=== PATIENT | female | born 1945 | race Caucasian/White ===

== ENCOUNTER 2023-03-31 15:23 | Inpatient (IN) ==
[2023-03-31 17:42] LABS: ABS Basophils 0.1 10^3/uL (0.0-0.1); ABS Eosinophils 0.1 10^3/uL (0.0-0.5); ABS Lymphocytes 0.8 10^3/uL (1.0-4.8); ABS Monocytes 0.8 10^3/uL (0.0-0.9); ABS Neutrophils 9.1 10^3/uL (1.5-7.6); ABS Nucleated RBC 0.01 10^3/ul; Eosinophil % 1.1 %; Hematocrit 30.4 % (35-45); Hemoglobin 9.8 g/dL (11.5-14.3); Lymphocyte % 7.6 %; Mean Corpuscular Hemoglobin 27.1 pg (27-33); Mean Corpuscular Hgb Conc 32.3 g/dL (31-36); Mean Corpuscular Volume 83.8 fL (80-97); Mean Platelet Volume 7.4 fL (7.5-11.2); Platelet Count 315 10^3/uL (150-450); Red Blood Count 3.63 10^6/uL (3.63-4.92); Red Cell Distribution Width 17.7 % (12-17); White Blood Count 10.8 10^3/uL (3.8-11.8)
[2023-03-31 18:05] LABS: High Sens Troponin Baseline 11 pg/mL (<15)
[2023-03-31 18:16] LABS: ALT 16 U/L (7-52); AST 25 U/L (13-39); Albumin 3.2 g/dL (3.2-5.2); Albumin/Globulin Ratio 1.1 (1-3); Alkaline Phosphatase 67 U/L (35-149); Anion Gap 8 mmol/L (2-16); Blood Urea Nitrogen 17 mg/dL (6-24); C Reactive Protein 219.61 mg/L (<8.01); CO2 Carbon Dioxide 29 mmol/L (22-32); Calcium 9.4 mg/dL (8.6-10.3); Chloride 98 mmol/L (101-111); Creatinine, Serum 0.45 mg/dL (0.51-0.95); Globulin 2.8 g/dL (2-4); Glucose 193 mg/dL (70-100); Magnesium 1.9 mg/dL (1.9-2.7); Phosphorus 2.1 mg/dL (2.5-5.0); Potassium 4.7 mmol/L (3.5-5.0); Sodium 135 mmol/L (135-145); eGFR CKD-EPI 100.3 (>60)
[2023-03-31] MEDS ORDERED: NS 0.9% 1000 ml BAG 1,000 ML IV ONE (18:41)
[2023-03-31 19:08] LABS: Urine Appearance Cloudy; Urine Bacteria 1+ (Absent); Urine Bilirubin Negative (Negative); Urine Blood 3+ (Negative); Urine Color Yellow; Urine Glucose 3+(>=500 mg/dL) (Negative); Urine Ketones 1+ (Negative); Urine Nitrite Positive (Negative); Urine Protein 2+(100 mg/dL) (Negative); Urine Red Blood Cell 3+(>10/hpf) (Absent); Urine Urobilinogen Negative (Negative); Urine White Blood Cell 3+(>20/hpf) (Absent); Urine Yeast Present (Absent)
[2023-03-31] MEDS ORDERED: cefTRIAXone 1 gm/50 mL D5W 1 GM/50 ML BAG IV ONE (19:09)
[2023-03-31 19:28] LABS: High Sensitivity Troponin 1 Hr 11 pg/mL (<15)
[2023-03-31] MEDS ORDERED: Enoxaparin 40 MG/0.4 ML SYR SUBCUT SCH (21:00)
[2023-03-31] MEDS ORDERED: ALBUTEROL SULFATE 0.63 MG/3 ML INH SCH (21:45)
[2023-03-31] MEDS ORDERED: Senna TAB 8.6 mg TAB PO PRN (21:45)
[2023-03-31] MEDS ORDERED: Morphine ER 15 mg TAB ** extended release PO SCH (22:00)
[2023-03-31] MEDS ORDERED: Albuterol 2.5mg/3 ml (0.083%) NEB.SOLN INH PRN (22:50)
[2023-03-31] MEDS ORDERED: Dextrose 50% Syringe 50 ml 25 GM/50 ML SYRINGE IV PUSH PRN (23:02)
[2023-03-31 23:59] LABS: TSH Ultra Thyroid Stim Horm 35.51 mcIU/mL (0.34-5.60)
[2023-04-01 00:10] LABS: Vitamin B12 > 1450 pg/mL (180-914)
[2023-04-01 02:10] LABS: ABS Eosinophils 0.1 10^3/uL (0.0-0.5); ABS Lymphocytes 1.1 10^3/uL (1.0-4.8); ABS Monocytes 0.6 10^3/uL (0.0-0.9); ABS Neutrophils 6.3 10^3/uL (1.5-7.6); ABS Nucleated RBC 0.01 10^3/ul; Eosinophil % 1.5 %; Hematocrit 27.6 % (35-45); Hemoglobin 8.9 g/dL (11.5-14.3); Lymphocyte % 13.8 %; Mean Corpuscular Hemoglobin 27.4 pg (27-33); Mean Corpuscular Hgb Conc 32.4 g/dL (31-36); Mean Corpuscular Volume 84.6 fL (80-97); Mean Platelet Volume 7.2 fL (7.5-11.2); Nucleated Red Blood Cells % 0.1 /100 WBC (0.0-0.4); Platelet Count 279 10^3/uL (150-450); Red Blood Count 3.26 10^6/uL (3.63-4.92); Red Cell Distribution Width 17.5 % (12-17); White Blood Count 8.1 10^3/uL (3.8-11.8)
[2023-04-01 02:29] LABS: Calcium 8.7 mg/dL (8.6-10.3); Creatinine, Serum 0.36 mg/dL (0.51-0.95); Potassium 4.3 mmol/L (3.5-5.0); eGFR CKD-EPI 105.8 (>60)
[2023-04-01 03:14] LABS: Free T4 0.6 ng/dL (0.61-1.12)
[2023-04-01] MEDS: Levothyroxine 100 MCG/5 ML VIAL IV SCH (05:23)
[2023-04-01] MEDS: Morphine 2 MG/ML SYRINGE IV PRN ×4 (05:26→21:22)
[2023-04-01] MEDS: Albuterol HFA INHALER 8 gm MDI INH SCH ×2 (07:49→11:19)
[2023-04-01] MEDS: Acetaminophen IV 1 GM/100ML 1,000 MG/100 ML BAG IV PRN (08:43)
[2023-04-01] MEDS ORDERED: cefTRIAXone 1 gm/50 mL D5W 1 GM/50 ML BAG IV SCH ×2 (09:00→19:30)
[2023-04-01] MEDS ORDERED: Albuterol HFA INHALER 8 gm MDI INH PRN (11:22)
[2023-04-01] MEDS ORDERED: LORazepam 2 mg VIAL 1 ml IV PUSH ONE (11:38)
[2023-04-01] MEDS ORDERED: Lactated Ringers 1000 ml BAG 1,000 ML IV ONE (11:38)
[2023-04-01] MEDS ORDERED: Lorazepam PYXIS KEY PRN (11:38)
[2023-04-01] MEDS ORDERED: Piperacillin/Tazobac ADVAN 3.375 GM in NS 0.9% 100 ml BAG 100 ML IV ONE (12:32)
[2023-04-01] MEDS ORDERED: Zosyn per Pharmacy NOTE FOLLOW UP SCH (13:00)
[2023-04-01] MEDS: Cholestyramine Resin 4 GM POWDER PO SCH (15:13)
[2023-04-01] MEDS: DULoxetine DR 60 mg CAP PO SCH (15:13)
[2023-04-01] MEDS: Multivitamins/Minerals TAB PO SCH (15:14)
[2023-04-01] MEDS: Insulin GLARGINE 100 un/ml 10 ml VIAL SUBCUT SCH (15:14)
[2023-04-01] MEDS: Enoxaparin 40 MG/0.4 ML SYR SUBCUT SCH (17:08)
[2023-04-01] MEDS ORDERED: Hydrocortisone INJ 100 MG/2ML 2 ML VIAL IV SCH (18:00)
[2023-04-01] MEDS: Hydrocortisone INJ 100 MG VIAL IV SCH (20:16)
[2023-04-01] MEDS: ZOSYN 3.375 GM Q8H per EXTENDED INFUSION IV SCH (20:25)
[2023-04-01] MEDS ORDERED: Morphine 2 MG/ML SYRINGE IV ONE (22:24)
[2023-04-02] MEDS: LORazepam 2 mg VIAL 1 ml IV PUSH PRN ×3 (02:13→22:13)
[2023-04-02] MEDS: Hydrocortisone INJ 100 MG VIAL IV SCH ×3 (04:16→20:29)
[2023-04-02] MEDS: ZOSYN 3.375 GM Q8H per EXTENDED INFUSION IV SCH ×3 (04:20→18:13)
[2023-04-02] MEDS ORDERED: Lorazepam PYXIS KEY PRN ×2 (04:48→23:43)
[2023-04-02] MEDS ORDERED: LORazepam 2 mg VIAL 1 ml IV PUSH ONE ×2 (04:49→23:43)
[2023-04-02] MEDS: Levothyroxine 100 MCG/5 ML VIAL IV SCH (06:00)
[2023-04-02 06:13] LABS: ABS Lymphocytes 0.6 10^3/uL (1.0-4.8); ABS Monocytes 0.3 10^3/uL (0.0-0.9); ABS Neutrophils 5.8 10^3/uL (1.5-7.6); Eosinophil % 0.3 %; Hematocrit 26.1 % (35-45); Hemoglobin 8.6 g/dL (11.5-14.3); Lymphocyte % 9.5 %; Mean Corpuscular Hemoglobin 28.1 pg (27-33); Mean Corpuscular Hgb Conc 33.2 g/dL (31-36); Mean Corpuscular Volume 84.7 fL (80-97); Platelet Count 276 10^3/uL (150-450); Red Blood Count 3.07 10^6/uL (3.63-4.92); Red Cell Distribution Width 17.3 % (12-17); White Blood Count 6.8 10^3/uL (3.8-11.8)
[2023-04-02 06:39] LABS: Calcium 8.1 mg/dL (8.6-10.3); Creatinine, Serum 0.33 mg/dL (0.51-0.95); Magnesium 1.5 mg/dL (1.9-2.7); Potassium 3.8 mmol/L (3.5-5.0)
[2023-04-02] MEDS: Cholestyramine Resin 4 GM POWDER PO SCH (08:53)
[2023-04-02] MEDS: DULoxetine DR 60 mg CAP PO SCH (08:53)
[2023-04-02] MEDS: Insulin GLARGINE 100 un/ml 10 ml VIAL SUBCUT SCH (08:54)
[2023-04-02] MEDS: Multivitamins/Minerals TAB PO SCH (08:54)
[2023-04-02] MEDS ORDERED: Magnesium Sulf 4 GM/100 ML IV 4,000 MG/100 ML BAG IVPB ONE (11:44)
[2023-04-02] MEDS ORDERED: Lactated Ringers 1000 ml BAG 1,000 ML IV ONE (11:44)
[2023-04-02] MEDS: Acetaminophen IV 1 GM/100ML 1,000 MG/100 ML BAG IV PRN (15:00)
[2023-04-02] MEDS: Enoxaparin 40 MG/0.4 ML SYR SUBCUT SCH (20:34)
[2023-04-03] MEDS: LORazepam 2 mg VIAL 1 ml IV PUSH PRN ×3 (00:02→15:40)
[2023-04-03] MEDS: Hydrocortisone INJ 100 MG VIAL IV SCH ×3 (03:48→21:49)
[2023-04-03] MEDS: ZOSYN 3.375 GM Q8H per EXTENDED INFUSION IV SCH ×3 (04:02→21:55)
[2023-04-03] MEDS: Levothyroxine 100 MCG/5 ML VIAL IV SCH (05:31)
[2023-04-03 05:50] LABS: Hematocrit 26.9 % (35-45); Mean Corpuscular Hemoglobin 28.1 pg (27-33); Mean Corpuscular Hgb Conc 33.4 g/dL (31-36); Mean Corpuscular Volume 84.1 fL (80-97); Platelet Count 330 10^3/uL (150-450); Red Cell Distribution Width 17.4 % (12-17)
[2023-04-03 06:16] LABS: Albumin 2.8 g/dL (3.2-5.2); Albumin/Globulin Ratio 1.2 (1-3); Calcium 7.8 mg/dL (8.6-10.3); Creatinine, Serum 0.35 mg/dL (0.51-0.95); Globulin 2.4 g/dL (2-4); Magnesium 2.1 mg/dL (1.9-2.7); Potassium 3.3 mmol/L (3.5-5.0); Total Bilirubin 0.4 mg/dL (0.2-1.0); Total Protein 5.2 g/dL (6.4-8.9); eGFR CKD-EPI 106.5 (>60)
[2023-04-03] MEDS: Cholestyramine Resin 4 GM POWDER PO SCH (07:24)
[2023-04-03] MEDS: Insulin GLARGINE 100 un/ml 10 ml VIAL SUBCUT SCH (07:24)
[2023-04-03] MEDS: DULoxetine DR 60 mg CAP PO SCH (07:24)
[2023-04-03] MEDS: Multivitamins/Minerals TAB PO SCH (07:25)
[2023-04-03 08:37] LABS: ABS Lymphocytes 0.7 10^3/uL (1.0-4.8); ABS Monocytes 0.3 10^3/uL (0.0-0.9); ABS Neutrophils 4.9 10^3/uL (1.5-7.6); ABS Nucleated RBC 0.01 10^3/ul; Anisocytosis 1+; Eosinophil % 0.2 %; Lymphocyte % 12.1 %; Nucleated Red Blood Cells % 0.1 /100 WBC (0.0-0.4); Polychromasia 1+
[2023-04-03] MEDS: Lactated Ringers 1000 ml BAG 1,000 ML IV SCH (12:41)
[2023-04-03] MEDS ORDERED: Morphine ORAL.SOLN 10 mg 2 mg/ml UDC 5 ml (10 mg) PO PRN ×3 (14:57→19:46)
[2023-04-03] MEDS ORDERED: Lorazepam PYXIS KEY PRN (14:59)
[2023-04-03] MEDS: Morphine ORAL.SOLN 10 mg 2 mg/ml UDC 5 ml (10 mg) PO SCH ×3 (15:32→22:08)
[2023-04-03] MEDS: Enoxaparin 40 MG/0.4 ML SYR SUBCUT SCH (22:00)
[2023-04-04] MEDS: Lactated Ringers 1000 ml BAG 1,000 ML IV SCH (02:00)
[2023-04-04] MEDS: Morphine ORAL.SOLN 10 mg 2 mg/ml UDC 5 ml (10 mg) PO SCH ×7 (03:58→23:30)
[2023-04-04] MEDS: Hydrocortisone INJ 100 MG VIAL IV SCH ×3 (04:16→20:02)
[2023-04-04] MEDS: ZOSYN 3.375 GM Q8H per EXTENDED INFUSION IV SCH ×3 (04:20→20:02)
[2023-04-04] MEDS: LORazepam 2 mg VIAL 1 ml IV PUSH PRN ×3 (04:31→23:11)
[2023-04-04] MEDS: Levothyroxine 100 MCG/5 ML VIAL IV SCH (05:39)
[2023-04-04] MEDS: Cholestyramine Resin 4 GM POWDER PO SCH (07:13)
[2023-04-04] MEDS: DULoxetine DR 60 mg CAP PO SCH (07:14)
[2023-04-04] MEDS: Multivitamins/Minerals TAB PO SCH (07:15)
[2023-04-04] MEDS: Insulin GLARGINE 100 un/ml 10 ml VIAL SUBCUT SCH (07:15)
[2023-04-04] MEDS ORDERED: Nystatin SUSPENSION 100,000 UNITS/ML UDC PO PRN (11:48)
[2023-04-04] MEDS: Enoxaparin 40 MG/0.4 ML SYR SUBCUT SCH (20:08)
[2023-04-05] MEDS ORDERED: Morphine ORAL CONCENTRATE 5 MG/0.25 ML ORAL.SYRIN SL SCH (01:00)
[2023-04-05] MEDS: Morphine ORAL CONCENTRATE 5 MG/0.25 ML ORAL.SYRIN SL PRN ×2 (01:14→17:36)
[2023-04-05] MEDS: ZOSYN 3.375 GM Q8H per EXTENDED INFUSION IV SCH ×3 (04:58→19:55)
[2023-04-05] MEDS: Levothyroxine 100 MCG/5 ML VIAL IV SCH (04:59)
[2023-04-05] MEDS: Hydrocortisone INJ 100 MG VIAL IV SCH ×3 (04:59→19:55)
[2023-04-05] MEDS: Morphine ORAL CONCENTRATE 5 MG/0.25 ML ORAL.SYRIN SL SCH ×5 (04:59→19:54)
[2023-04-05] MEDS: LORazepam 2 mg VIAL 1 ml IV PUSH PRN ×2 (07:28→20:53)
[2023-04-05] MEDS: Multivitamins/Minerals TAB PO SCH (10:52)
[2023-04-05] MEDS: DULoxetine DR 60 mg CAP PO SCH (10:52)
[2023-04-05] MEDS: Enoxaparin 40 MG/0.4 ML SYR SUBCUT SCH (21:05)
[2023-04-06] MEDS: Morphine ORAL CONCENTRATE 5 MG/0.25 ML ORAL.SYRIN SL SCH ×3 (00:18→08:34)
[2023-04-06] MEDS ORDERED: Lorazepam PYXIS KEY PRN (01:02)
[2023-04-06] MEDS ORDERED: LORazepam 2 mg VIAL 1 ml IV PUSH ONE (01:02)
[2023-04-06] MEDS: Hydrocortisone INJ 100 MG VIAL IV SCH ×3 (03:29→19:57)
[2023-04-06] MEDS: Levothyroxine 100 MCG/5 ML VIAL IV SCH (05:28)
[2023-04-06] MEDS: ZOSYN 3.375 GM Q8H per EXTENDED INFUSION IV SCH ×3 (05:28→19:57)
[2023-04-06] MEDS: Multivitamins/Minerals TAB PO SCH (07:12)
[2023-04-06] MEDS: DULoxetine DR 60 mg CAP PO SCH (07:12)
[2023-04-06] MEDS: LORazepam 2 mg VIAL 1 ml IV PUSH PRN ×2 (09:22→20:29)
[2023-04-06] MEDS: Morphine ORAL CONCENTRATE 5 MG/0.25 ML ORAL.SYRIN SL PRN ×4 (11:19→23:07)
[2023-04-06] MEDS ORDERED: [UNRECOGNIZED DRUG - OTHER] SL SCH (14:00)
[2023-04-06] MEDS ORDERED: LORazepam ORAL LIQ 2 MG/ML BULK BOTTLE SL SCH (14:00)
[2023-04-06] MEDS: Enoxaparin 40 MG/0.4 ML SYR SUBCUT SCH (22:07)
[2023-04-06] MEDS: Pantoprazole VIAL 40 MG VIAL IV SCH (23:07)
[2023-04-07] MEDS: Morphine ORAL CONCENTRATE 5 MG/0.25 ML ORAL.SYRIN SL PRN ×6 (02:31→22:03)
[2023-04-07] MEDS: Acetaminophen IV 1 GM/100ML 1,000 MG/100 ML BAG IV PRN ×2 (02:55→22:53)
[2023-04-07] MEDS: LORazepam 2 mg VIAL 1 ml IV PUSH PRN (03:38)
[2023-04-07] MEDS: Hydrocortisone INJ 100 MG VIAL IV SCH ×3 (03:39→19:35)
[2023-04-07] MEDS: ZOSYN 3.375 GM Q8H per EXTENDED INFUSION IV SCH ×2 (03:39→11:49)
[2023-04-07] MEDS: Levothyroxine 100 MCG/5 ML VIAL IV SCH (06:24)
[2023-04-07] MEDS: Pantoprazole VIAL 40 MG VIAL IV SCH (07:45)
[2023-04-08] MEDS: LORazepam 2 mg VIAL 1 ml IV PUSH PRN ×5 (01:29→21:20)
[2023-04-08] MEDS: Hydrocortisone INJ 100 MG VIAL IV SCH ×3 (05:22→21:16)
[2023-04-08] MEDS: Levothyroxine 100 MCG/5 ML VIAL IV SCH (06:25)
[2023-04-08] MEDS: Morphine ORAL CONCENTRATE 5 MG/0.25 ML ORAL.SYRIN SL PRN ×4 (07:28→15:01)
[2023-04-08] MEDS ORDERED: Zosyn per Pharmacy NOTE FOLLOW UP SCH (08:00)
[2023-04-08] MEDS ORDERED: ZOSYN 3.375 GM x ONE DOSE over 30 miuntes IV (08:30)
[2023-04-08] MEDS ORDERED: ZOSYN 3.375 GM Q8H per EXTENDED INFUSION IV SCH (14:00)
[2023-04-08] MEDS ORDERED: Morphine 2 MG/ML SYRINGE IV ONE (15:30)
[2023-04-08] MEDS: Acetaminophen IV 1 GM/100ML 1,000 MG/100 ML BAG IV SCH (17:57)
[2023-04-09] MEDS: Acetaminophen IV 1 GM/100ML 1,000 MG/100 ML BAG IV SCH ×3 (02:13→17:40)
[2023-04-09] MEDS: LORazepam 2 mg VIAL 1 ml IV PUSH PRN ×3 (02:37→19:52)
[2023-04-09] MEDS: Morphine ORAL CONCENTRATE 5 MG/0.25 ML ORAL.SYRIN SL PRN ×3 (03:56→17:59)
[2023-04-09] MEDS: Hydrocortisone INJ 100 MG VIAL IV SCH ×3 (04:22→19:48)
[2023-04-09] MEDS: Levothyroxine 100 MCG/5 ML VIAL IV SCH (06:13)
[2023-04-10] MEDS: Acetaminophen IV 1 GM/100ML 1,000 MG/100 ML BAG IV SCH ×2 (02:18→09:17)
[2023-04-10] MEDS: Hydrocortisone INJ 100 MG VIAL IV SCH ×2 (05:09→11:56)
[2023-04-10] MEDS: Levothyroxine 100 MCG/5 ML VIAL IV SCH (05:10)
[2023-04-10 07:55] VITALS: BP 134/77
[2023-04-10] MEDS ORDERED: LORazepam 2 mg VIAL 1 ml IV PUSH PRN ×3 (08:00→16:08)
[2023-04-10] MEDS: Morphine ORAL CONCENTRATE 5 MG/0.25 ML ORAL.SYRIN SL PRN (09:21)
[2023-04-10] MEDS ORDERED: Morphine ORAL CONCENTRATE 5 MG/0.25 ML ORAL.SYRIN SL PRN (10:53)
[2023-04-10] MEDS: Morphine ORAL CONCENTRATE 5 MG/0.25 ML ORAL.SYRIN SL SCH ×3 (13:27→21:16)
[2023-04-11] MEDS: Morphine ORAL CONCENTRATE 5 MG/0.25 ML ORAL.SYRIN SL SCH ×6 (01:38→21:44)
[2023-04-11] MEDS: Levothyroxine 100 MCG/5 ML VIAL IV SCH (05:33)
[2023-04-11] MEDS: Atropine 1% (ORAL/SL) 15 ML BTL SL PRN ×2 (20:06→22:52)
== END 2023-04-11 23:20 | disposition expired | DRG 698 ==
LOC: ED 15:23 → EDHOLD 20:09 → SUATTDRO 20:09 → MED 04-01 01:26
PROVIDERS: ADMIT Internal Medicine; ATTEND Hospitalist